=== PATIENT | female | born 1950 | race Caucasian/White ===

== ENCOUNTER → 2023-12-16 06:32 | Outpatient (REF) | payer MEDICARE, OTHER, SELFPAY | LOC: MRI 06:32 | PROVIDERS: ATTENDING PHYSICIAN Specialist; FAMILY PHYSICIAN Family Medicine | DX: M25.561 Pain in right knee (principal) | CPT/HCPCS: 73721 ==

== ENCOUNTER 2024-01-20 09:33 | Emergency (ER) | payer MEDICARE, OTHER, SELFPAY ==
[2024-01-20 09:35] VITALS: BP 112/72
--- NOTE | 2024-01-20 09:54 | ED.GENMED ---
History of Present Illness
General
Chief Complaint: Musculo-Skeletal Complaint
Source: patient
Exam Limitations: none
Time Seen by Provider: 01/20/24 09:41
Nursing documentation reviewed up to this point in time: agreed with
History of Present Illness
History of Present Illness:
Patient is a 73 year old female presenting for evaluation of right wrist injury. Patient states that on 01/08/24 patient was getting out of her boat while in [place] when her right wrist became stuck and was forcefully twisted. She was noticing
significant pain and swelling immediately following injury and was seen in urgent care in [place] where she had an x-ray that showed no evidence of fracture. Patient states that over the past 2 weeks swelling has significantly decreased. Pain is
also improved and is not only present with movement. She does, however, still have an area of swelling on her right dorsal wrist and some tenderness. She came to the emergency department for further evaluation and to ensure there is no fracture.
Patient denies any numbness/tingling in right wrist. She has been applying ice as needed.
Patient denies any other injuries or complaints today.
Review of Systems
Review of Systems
Allergies reviewed?: Yes
All Other Systems: ROS reviewed and negative except as documented in HPI and ROS
Phy Exam
Physical Exam
Physical Exam:
Vitals: Patient's vital signs are stable. Afebrile
General: Patient is well appearing, no acute distress. Nontoxic appearing
Skin: Mild swelling of right dorsal wrist. Warm and dry, no rashes or lesions.
Head: Normocephalic, atraumatic
Eyes: Sclera nonicteric. EOMs intact. No nystagmus.
Throat: Protecting airway
Neck: Normal ROM, no cervical spine tenderness, no meningismus
Cardiac: Regular rate and rhythm, no murmurs.
Pulm: Normal respiratory effort, no wheezes, rales, rhonchi heard on exam.
Abdomen: No abdominal tenderness.
Extremities: Mild swelling of right dorsal wrist with palpable hematoma. Very minimal bony tenderness of right wrist. No significant erythema, warmth, or red streaking of right wrist. Flexion and extension of right wrist intact against
resistance. Great distal pulses. Great capillary refill of RUE. Right upper extremity neurovascularly intact.
Neuro: AAOx3. CN II-XII intact. No focal neurologic deficits.
Psychiatric: Normal affect.
Course
Orders/Labs/Results
Orders:
Orders
01/20/24 09:53
Wrist, Right 3 Views [CR Wrist - Right Min 3 Views] Urgent
Comment:
Reason For Exam: pain / swelling right wrist
01/20/24 11:08
Splints/Slings/Crut- Treatment ONCE
Location: Right
Type of Splint: [place] Wrist
Vital Signs
Initial and Last Documented VS:
Initial Vital Signs
Temp Pulse Resp BP Pulse Ox
98.4 F 76 18 112/72 94
01/20/24 09:35 01/20/24 09:35 01/20/24 09:35 01/20/24 09:35 01/20/24 09:35
Last Documented Vital Signs
Temp Pulse Resp BP Pulse Ox
98.4 F 76 18 112/72 94
01/20/24 09:35 01/20/24 09:35 01/20/24 09:35 01/20/24 09:35 01/20/24 09:35
MDM/Problems Addressed
Differential Diagnosis Includes:
Not limited to: Fracture, sprain, muscle injury, hematoma
MDM/Problems Addressed:
73-year-old female presenting with persistent wrist pain following injury 2 weeks ago. Seen in urgent care time injury with negative x-ray. Overall swelling and pain has decreased although patient does still have tenderness in localized swelling
on right dorsal wrist. Came to emergency department for further evaluation. Vital stable. Patient does have minimal swelling of right dorsal wrist with palpable hematoma. No overlying erythema, warmth, red streaking to suggest infectious
process. Patient is afebrile. Great distal pulses and right upper extremity with normal capillary refill. Sensation fully intact. X-ray of right wrist obtained which shows no evidence of acute fracture. Will place patient in universal Velcro
wrist splint. Patient will follow-up with orthopedics. Return precautions discussed with patient at length including signs of infection. Recommended ice, NSAIDs as needed for discomfort, elevation. Patient comfortable with plan. All questions
answered.
Chronic conditions affecting care:
N/A
Acute Exacerbation and/or Progression of Chronic Illness:
N/A
*Radiology
Radiology exam reviewed: preliminary read by ED provider (No acute fracture) and radiology read reviewed
*Pulse Oximetry
Patient hypoxic: no
*EKG
Interpreted by ED Provider?: NA
*Canal Tender Interpretation
Rate: Canal Tender- N/A
*Critical Care Note
Total Time (30-74mins, 75-104mins- exclusive of procedures): Not Applicable
ED Attending Note
-
Portions of this chart may have been created with voice recognition software.� Occasional wrong word or��sound alike� substitutions may have occurred due to the inherent limitations of voice recognition software.
Discharge Plan
Departure
Patient Disposition: Home (Routine Discharge)
Date of Disposition: 01/20/24
Time of Disposition: 11:18
Patient with high blood pressure during this ER visit?: No
Condition: Good
Covid-19: Not Applicable
Discharge Problem:
Injury of wrist, right
Instructions: Hematoma
Referrals:
Jh Dee MD [Active] - Call in 1-3 days for appt
Melissa Garduno MD [Family Provider] -
Activity Restrictions/Additional Instructions:
RETURN TO THE EMERGENCY DEPARTMENT WITH ANY INTRACTABLE PAIN,NUMBNESS/TINGLING IN RIGHT WRIST, ANY SIGNS OF INFECTION INCLUDING FEVER, CHILLS, WORSENING REDNESS/SWELLING OF RIGHT WRIST, RED STREAKING OF RIGHT WRIST, OR ANY OTHER CONCERNS
-You should keep wrist in splint and apply ice as needed. You can take Tylenol and/or Motrin as needed for discomfort.
-You should follow-up with orthopedics for further evaluation/management. You may require further imaging. The contact information has been provided for you above.
Interventions
Interventions:
*Risk Screen - Suicide Last Done: 01/20/24 09:35
*General Assessment Last Done: 01/20/24 09:35
*Neglect/Abuse Screening Last Done: 01/20/24 09:35
*ED COVID-19 Vaccine History Last Done: 01/20/24 10:20
*Nursing Disposition Last Done: 01/20/24 11:43
ED-Musculoskeletal Assessment Last Done: 01/20/24 10:19
Discharge Date and Time
Discharge Date/Time: 01/20/24 11:44
Print Language: SLOVAK
== END 2024-01-20 11:44 | disposition home or self-care (01) ==
LOC: EMR 09:33
PROVIDERS: EMERGENCY PHYSICIAN Emergency Medicine; FAMILY PHYSICIAN Family Medicine
DX: S69.91XA Unspecified injury of right wrist, hand and finger(s), initial encounter (principal); X50.1XXA Overexertion from prolonged static or awkward postures, initial encounter; Y93.89 Activity, other specified; Y92.814 Boat as the place of occurrence of the external cause
CPT/HCPCS: 99283; 29125; 73110

== ENCOUNTER → 2024-02-16 08:17 | Outpatient (REF) | payer MEDICARE, OTHER, SELFPAY ==
[2024-02-16 08:36] VITALS: BMI 30.6
[2024-02-16 09:56] LABS: Blood Urea Nitrogen 18 mg/dl (7-17); Calcium 9.6 mg/dl (8.4-10.2); Carbon Dioxide 29 mmol/L (22-30); Chloride 106 mmol/L (98-107); Estimated Creatinine Clearance 49 ml/min; Glucose 112 mg/dl (70-99); Potassium 4.7 mmol/L (3.5-5.1); Sodium 139 mmol/L (135-145); eGFR > 60.00
[2024-02-16 09:59] LABS: % Basophils 0.9 % (0-2); % Eosinophils 1.5 % (0-6); % Immature Granulocytes 0.3 % (0-0.5); % Lymphocytes 34.6 % (20.5-51.1); % Monocytes 6.8 % (1.7-9.3); % Neutrophils 55.9 % (42.2-75.2); Absolute Basophils 0.1 10^3/uL (0-0.2); Absolute Eosinophils 0.1 10^3/uL (0-0.7); Absolute Lymphocytes 2.3 10^3/uL (1.2-3.4); Absolute Monocytes 0.5 10^3/uL (0.1-0.6); Absolute Neutrophils 3.8 10^3/uL (1.4-6.5); Hematocrit 40.4 % (37.0-47.0); Hemoglobin 13.3 g/dL (12.0-16.0); Mean Corp Hgb Conc. 32.9 g/dL (33.0-37.0); Mean Corpuscular Hgb 31.9 pg (27.0-31.0); Mean Corpuscular Volume 96.9 fL (81.0-99.0); Mean Platelet Volume 11.8 fL (7.4-10.4); Nucleated Red Blood Cells % 0 %; Platelet Count 229 10^3/uL (130-400); Red Blood Cell Count 4.17 10^6/uL (4.20-5.40); Red Cell Dist. Width 13.2 % (11.5-14.5); White Blood Cell Count 6.7 10^3/uL (4.8-10.8)
== END ==
LOC: SDSPAT 08:17
PROVIDERS: ATTENDING PHYSICIAN Specialist; FAMILY PHYSICIAN Family Medicine; OTHER PHYSICIAN Internal Medicine Critical Care Medicine
DX: Z01.818 Encounter for other preprocedural examination (principal)
CPT/HCPCS: 36415; 80048; 85025; 93005

== ENCOUNTER 2024-02-22 06:23 | Day surgery (SDC) | payer MEDICARE, OTHER, SELFPAY ==
[2024-02-22] VITALS (9 sets, daily range): BP systolic 124–144; BP diastolic 53–84; BMI 29.7
[2024-02-22] MEDS: TYLENOL 1000 MG PO (10:30)
[2024-02-22] MEDS: CELEBREX 200 MG PO (10:30)
[2024-02-22] MEDS: NORMOSOL-R 1000 IV (10:30)
[2024-02-22] MEDS: DILAUDID 0.5 MG IV (15:16)
== END 2024-02-22 16:44 | disposition home or self-care (01) ==
LOC: SDS 06:23
PROVIDERS: ATTENDING PHYSICIAN Specialist; FAMILY PHYSICIAN Family Medicine
DX: S83.231A Complex tear of medial meniscus, current injury, right knee, initial encounter (principal); S83.281A Other tear of lateral meniscus, current injury, right knee, initial encounter; M17.11 Unilateral primary osteoarthritis, right knee; X58.XXXA Exposure to other specified factors, initial encounter
CPT/HCPCS: 29880

== ENCOUNTER → 2024-05-19 10:03 | Outpatient (REF) | payer MEDICARE, OTHER, SELFPAY | LOC: RAD 10:03 | PROVIDERS: ATTENDING PHYSICIAN Family Medicine | DX: Z78.0 Asymptomatic menopausal state (principal) | CPT/HCPCS: 77080 ==

== ENCOUNTER → 2024-06-15 17:55 | Outpatient (REF) | payer MEDICARE, OTHER, SELFPAY | LOC: WDC 17:55 | PROVIDERS: ATTENDING PHYSICIAN Family Medicine | DX: Z12.31 Encounter for screening mammogram for malignant neoplasm of breast (principal) | CPT/HCPCS: 77063; 77067 ==

== ENCOUNTER → 2024-12-27 11:55 | Outpatient (REF) | payer MEDICARE, OTHER, SELFPAY | LOC: RAD 11:55 | PROVIDERS: ATTENDING PHYSICIAN Internal Medicine Critical Care Medicine; FAMILY PHYSICIAN Family Medicine | DX: J44.9 Chronic obstructive pulmonary disease, unspecified (principal) | CPT/HCPCS: 71046 ==